=== PATIENT | male | born 2000 | race Caucasian/White ===

== ENCOUNTER 2020-08-04 02:39 | Emergency (ER) | payer SELFPAY ==
[~2020-08-04] VITALS: Ht 165.1 cm; Wt 53.0 kg
[2020-08-04] MEDS ORDERED: IBUPROFEN 800MG TABLET PO ONE (03:00)
[2020-08-04 03:20] VITALS: BP 121/74
[2020-08-04] MEDS ORDERED: IBUP-2029 MT (03:21)
== END 2020-08-04 03:26 | disposition home or self-care (01) ==
LOC: ER 02:39
DX: M54.2 Cervicalgia (principal); R07.81 Pleurodynia; M54.89 Other dorsalgia; V43.52XA Car driver injured in collision with other type car in traffic accident, initial encounter; Y93.89 Activity, other specified; Y92.488 Other paved roadways as the place of occurrence of the external cause
CPT/HCPCS: 71045; 99283